=== PATIENT | male | born 1960 | race African-American/Black ===

== ENCOUNTER 2018-08-02 08:47 | Emergency (ER) | payer OTHER ==
[~2018-08-02] VITALS: Ht 180.3 cm; Wt 96.6 kg
[~2018-08-02 08:47] MED LIST: ANAPROX DS550 MG PO; AUGMENTIN 875 M1 TAB PO; BLOOD PRESSURE PO; MEDROL DOSEPAK4 MG PO; SEPTRA DS 800 M1 TAB PO; VICODIN 500 MG-1 TAB PO; VICODIN ES 7501 TA1 PO
[2018-08-02] MEDS ORDERED: Percocet 325 MG1 TAB PO (08:54)
[2018-08-02] MEDS ORDERED: Motrin,Rufen800 MG PO (10:03)
== END 2018-08-02 10:12 | disposition home or self-care (01) ==
LOC: ED 08:47
DX: S59.902A Unspecified injury of left elbow, initial encounter (principal); Z79.899 Other long term (current) drug therapy; Z88.6 Allergy status to analgesic agent; X50.9XXA Other and unspecified overexertion or strenuous movements or postures, initial encounter; Y93.89 Activity, other specified; Y92.89 Other specified places as the place of occurrence of the external cause; Y99.8 Other external cause status